=== PATIENT | male | born 1985 | race Caucasian/White ===

== ENCOUNTER 2022-08-21 17:22 | Emergency (ER) | payer MEDICAID, SELFPAY ==
[2022-08-21 17:41] VITALS: BP 173/97; PULSE 106; RESP 20; TEMP 37.2; O2SAT 93; BMI 53.2
[2022-08-21] MEDS: Lidocaine HCl 1 % MPF 5 ML VIAL 20 ML SUBCUT (19:06)
--- NOTE | 2022-08-21 19:16 | ED_ITS ---
HPI - Skin/Abscess/Foreign Bdy General Chief complaint: Skin/Abscess/Foreign Body Stated complaint: spinal cyst Time Seen by Provider: 08/21/22 18:44 Source: patient Mode of arrival: ambulatory Limitations: no limitations History of Present Illness MD complaint: abscess/boil Onset (ago): day(s) (Past few days worse today) Location: buttocks (Pilonidal) Severity: severe Severity scale (1-10): >10 Quality: aching and constant Pain Consistency: constant Relieving factors: none Exacerbating factors: none Context: none Associated symptoms: denies other symptoms Treatments prior to arrival: none Related Data Previous Rx's Medication Instructions Recorded acetaminophen 500 mg tablet 1,000 mg PO QID PRN fever or pain 08/21/22 (Tylenol Extra Strength) #14 tabs cephalexin 500 mg capsule 500 mg PO Q6H 10 days #40 caps 08/21/22 doxycycline monohydrate 100 mg 100 mg PO BID 10 days #20 caps 08/21/22 capsule ibuprofen 800 mg tablet 800 mg PO Q8H PRN pain #14 tabs 08/21/22 Allergies Allergy/AdvReac Type Severity Reaction Status Date / Time No Known Allergies Allergy Verified 08/21/22 17:45 Review of Systems Review of Systems: Constitutional : Denies history of same, Denies any other sites involved, Denies IV drug use, Denies history of MRSA, Denies swollen glands, Denies injury, Denies Fever, Denies Chills, + Sig Pain, Denies Systemic symptoms Cardiovascular : No Chest Pain, No SOB Respiratory : No Dyspnea Gastrointestinal : No abdominal pain Musculoskeletal : No Joint Swelling Skin : + abscess with surrounding erythema, No skin laceration, No Foreign bodies, No spreading rash, Denies bites, Denies discharge, Neuro : No Weakness, No Numbness/tingling Psych : No SI/HI/thoughts of self injury Yes all other systems are reviewed and are negative PMFSH Past Medical History Attestation statement: The following information was validated with the patient. Source: old records reviewed and nursing notes reviewed Social History Social History Advance Directives: No Advance Directives Information Provided: No Physical Exam Vital Signs: Vital Signs: Last Vital Signs Temp 98.9 F 08/21/22 17:41 Pulse 106 H 08/21/22 17:41 Resp 20 08/21/22 17:41 BP 173/97 H 08/21/22 17:41 Pulse Ox 93 08/21/22 17:41 O2 Del Method Room Air 08/21/22 17:41 BMI result Body Mass Index 53.2 vital signs have been reviewed as normal and appeared to be correct. Blood pressure 173/97 Heart rate 106. Respiration rate normal. Temperature normal. Oxygen saturation normal. Appearance: Alert. Oriented X3. No acute distress. Head: Normal external exam. Normocephalic. Atraumatic. Eyes: PERRLA. EOMI. Conjunctiva and sclera normal. Eyelids normal. ENT: Pharynx normal. Uvula midline. Moist mucous membranes. Neck: Normal inspection. Neck supple. FROM. CVS: Normal heart rate and rhythm. Respiratory: No respiratory distress. Painless inspiration. Skin: Skin warm and dry. Normal skin color. Normal skin turgor. Large pilonidal abscess approximately 5 x 5 cm with surrounding erythema. No active drainage or streaking noted at this time. Noted rashes/lesions/lacerations noted. Extremities: No lower extremity edema. Extremities exhibit normal range of motion. Extremities nontender. Neuro: Oriented X 3. No motor deficit. No sensory deficit. Reflexes normal. Normal steady gait. No focal neuro deficits noted. Vascular: + radial pulses. Normal cap refill. No cyanosis noted to upper extremity nails Course Course Course Narrative: IMP/Plan: abscess. No systemic toxicity, and pt looks well. + surrounding cellulitis. Not c/w nec fasc/ myositis/ DVT/ osteomyelitis. patient now status post I&D of abscess and patient tolerated procedure well. No complications. No labs or imaging indicated at this time. Patient reported that he would not like packing I did explain to him the benefits of packing although he reports the last time he had this panel abscess packed he became very sick therefore is refusing packing. Will DC home antibiotics and symptomatic treatment instructions return if any new or worsening symptoms to follow up with primary care provider, wound clinic and general surgeon for further evaluation treatment to return if any new or worsening symptoms. Patient understands agrees this plan. Medications Administered Discontinued Medications Generic Name Dose Route Start Last Admin Trade Name Freq PRN Reason Stop Dose Admin Lidocaine HCl 20 ml 08/21/22 18:39 08/21/22 19:06 Lidocaine Hcl 1 % Mpf 5 Ml Vial SUBCUT 08/21/22 18:40 20 ml ONCE ONE Administration Procedures Abscess I/D Site: other (Pilonidal) Local Anesthetic: lidocaine 1% Amount of anesthesia used (mL): 15 Technique: incised with blade Amount of fluid expressed (mL): 20 Sent for culture/gram staining?: No Irrigation: Yes Packing used?: none Complications: other (No complications patient tolerated procedure well) Discharge Plan Discharge Clinical Impression: Pilonidal abscess Patient Disposition: Home, Self-Care Instructions: Pilonidal Cyst (ED), Abscess (ED), Sitz Bath (DC) Prescriptions: New ibuprofen 800 mg tablet 800 mg PO Q8H PRN (Reason: pain) Qty: 14 0RF acetaminophen [Tylenol Extra Strength] 500 mg tablet 1,000 mg PO QID PRN (Reason: fever or pain) Qty: 14 0RF doxycycline monohydrate 100 mg capsule 100 mg PO BID 10 Days Qty: 20 0RF cephalexin 500 mg capsule 500 mg PO Q6H 10 Days Qty: 40 0RF [place] [facility] [place] [facility] [place]] (Call to make a follow-up appointment for pilonidal abscess) [facility] [Primary Care Provider] - 2 days Andrés Hall MD [Physician] - (Call to make a follow-up appointment for a pilonidal abscess)
[2022-08-21] MEDS: Doxycycline Monohydrate 100 MG CAPSULE PO (19:28)
[2022-08-21] MEDS: Ketorolac Tromethamine 60 MG/2 ML VIAL IM (19:28)
[2022-08-21] MEDS: cephALEXin 500 MG CAPSULE PO (19:28)
== END 2022-08-21 19:33 | disposition home or self-care (01) ==
PROVIDERS: Emergency Provider Internal Medicine
DX: L05.01 Pilonidal cyst with abscess (principal)
CPT/HCPCS: 10060; 96372; 99283; 99284; J1885

== ENCOUNTER 2022-09-19 22:37 | Emergency (ER) | payer MEDICAID, SELFPAY ==
[2022-09-19 22:38] VITALS: BP 172/135; PULSE 94; RESP 18; TEMP 36.1; O2SAT 95; BMI 43.0
== END 2022-09-19 23:18 | disposition left against medical advice (07) ==
PROVIDERS: Emergency Provider Emergency Medicine
DX: M54.50 Low back pain, unspecified (principal)
CPT/HCPCS: 99281

== ENCOUNTER 2022-09-20 17:13 | Emergency (ER) | payer MEDICAID, SELFPAY ==
--- NOTE | 2022-09-20 17:54 | ED_ITS ---
HPI - Skin/Abscess/Foreign Bdy General Chief complaint: Skin/Abscess/Foreign Body <LOURDES Mello Last Filed: 09/20/22 17:55> Stated complaint: Cyst on spine <LOURDES Mello Last Filed: 09/20/22 17:55> Time Seen by Provider: 09/20/22 18:04 <LOURDES Mello Last Filed: 09/20/22 17:55> Source: patient, RN notes reviewed and old records reviewed <LOURDES Rodriguez Last Filed: 09/20/22 18:50> Mode of arrival: ambulatory <LOURDES Rodriguez Last Filed: 09/20/22 18:50> History of Present Illness HPI narrative: 37-year-old male with past medical history pilonidal cyst presenting to the ED complaining of worsening pilonidal abscess x 4 days. Admits feels like area opened up today. Denies fever, chills, difficulty your inability to defecate/urinate, abdominal pain <LOURDES Rodriguez Last Filed: 09/20/22 18:50> MD complaint: abscess/boil <LOURDES Rodriguez Last Filed: 09/20/22 18:50> Related Data Home medications: Previous Rx's Medication Instructions Recorded acetaminophen 500 mg tablet 1,000 mg PO QID PRN fever or pain 08/21/22 (Tylenol Extra Strength) #14 tabs cephalexin 500 mg capsule 500 mg PO Q6H 10 days #40 caps 08/21/22 doxycycline monohydrate 100 mg 100 mg PO BID 10 days #20 caps 08/21/22 capsule ibuprofen 800 mg tablet 800 mg PO Q8H PRN pain #14 tabs 08/21/22 cephalexin 500 mg capsule 500 mg PO QID 7 days #28 caps 09/20/22 doxycycline hyclate 100 mg tablet 100 mg PO BID 7 days #14 tabs 09/20/22 <LOURDES Mello Last Filed: 09/20/22 17:55> Allergies/Adverse reactions: Allergies Allergy/AdvReac Type Severity Reaction Status Date / Time No Known Allergies Allergy Verified 09/20/22 17:57 <LOURDES Mello Last Filed: 09/20/22 17:55> Review of Systems Review of Systems: Constitutional: No Fever, No Chills ENT/Mouth: No Ear Pain, No Nasal Congestion, No sore throat, No Rhinorrhea, No Swallowing Difficulty Cardiovascular: No Chest Pain, No SOB Respiratory: No Cough, No Sputum Gastrointestinal: No Nausea, No Vomiting, No Diarrhea, No Constipation, No Abdominal pain Genitourinary: No Dysuria,No Hematuria, No Urinary Incontinence/retention, No Urgency, No Flank Pain Musculoskeletal: No joint pain, No Myalgias, No Joint Swelling Skin: + Skin Lesions, No rash Neuro: No Weakness, No Numbness, No Paresthesias <LOURDES Rodriguez - Last Filed: 09/20/22 18:50> Yes all other systems are reviewed and are negative <LOURDES Rodriguez - Last Filed: 09/20/22 18:50> Constitutional: Constitutional: Reports as per HPI <LOURDES Rodriguez - Last Filed: 09/20/22 18:50> [facility] Past Medical History Attestation statement: The following information was validated with the patient. <LOURDES Rodriguez - Last Filed: 09/20/22 18:50> Source: old records reviewed <LOURDES Rodriguez - Last Filed: 09/20/22 18:50> Physical Exam Vital Signs: Vital Signs: Last Vital Signs Temp 97.1 F 09/20/22 17:55 Pulse 99 09/20/22 17:55 Resp 22 H 09/20/22 17:55 BP 148/91 H 09/20/22 17:55 Pulse Ox 93 09/20/22 17:55 O2 Del Method Room Air 09/20/22 17:55 BMI result Body Mass Index 53.2 <LOURDES Mello - Last Filed: 09/20/22 17:55> Vital Signs: Last Vital Signs Temp 97.1 F 09/20/22 17:55 Pulse 99 09/20/22 17:55 Resp 22 H 09/20/22 17:55 BP 148/91 H 09/20/22 17:55 Pulse Ox 93 09/20/22 17:55 O2 Del Method Room Air 09/20/22 17:55 BMI result Body Mass Index 53.2 <LOURDES Rodriguez - Last Filed: 09/20/22 18:50> Const: General: cooperative, healthy appearing and no acute distress <LOURDES Rodriguez - Last Filed: 09/20/22 18:50> Orientation/consciousness: patient oriented x3 <LOURDES Rodriguez - Last Filed: 09/20/22 18:50> Limitations: no limitations <Khushi Steen PA - Last Filed: 09/20/22 18:50> HEENT: Head: Yes normal to inspection and Yes atraumatic <Khushi Steen PA - Last Filed: 09/20/22 18:50> Ears: hearing grossly normal bilaterally <Khushi Steen PA - Last Filed: 09/20/22 18:50> General nose exam: Normal external nose present <Khushi Steen PA - Last Filed: 09/20/22 18:50> Face and sinus: Yes normal facial exam <Khushi Steen PA - Last Filed: 09/20/22 18:50> Eyes: General: appearance normal, both eyes and all related structures <Khushi Steen PA - Last Filed: 09/20/22 18:50> EOM: EOMs intact bilaterally <Khushi Steen PA - Last Filed: 09/20/22 18:50> Neck: Neck: Yes normal visual inspection and Yes no meningeal signs <Khushi Steen PA - Last Filed: 09/20/22 18:50> Resp: Effort & Inspection: normal respiratory effort and no respiratory distress <LOURDES Rodriguez - Last Filed: 09/20/22 18:50> Cardio: Rate: regular rate <Khushi Steen PA - Last Filed: 09/20/22 18:50> : Other: + pilonidal abscess to right upper buttock with pointing/fluctuance and induration. Mild overlying erythema. No warmth. No crepitus. Tender to palpation. <LOURDES Rodriguez - Last Filed: 09/20/22 18:50> Skin: Rashes: no rashes <LOURDES Rodriguez - Last Filed: 09/20/22 18:50> Wounds: no wounds <Khushi Steen PA - Last Filed: 05/16/23 18:50> Neuro: General: patient oriented x3, tone normal and no meningeal signs <LOURDES Rodriguez Last Filed: 09/20/22 18:50> Gait exam (Neuro): Normal gait present <LOURDES Rodriguez Last Filed: 09/20/22 18:50> Extrem: General: Yes normal to inspection <LOURDES Rodriguez Last Filed: 09/20/22 18:50> Course Course Course Narrative: This is a rapid medical exam. deferred additional HPI, ROS, PE to primary provider. 37 yo male here with h/o pilonidal abscess here with reoccurrence x 4 day. No fevers, chills. Unable to visualize in triage. <LOURDES Mello Last Filed: 09/20/22 17:55> This is a rapid medical exam. deferred additional HPI, ROS, PE to primary provider. 37 yo male here with h/o pilonidal abscess here with reoccurrence x 4 day. No fevers, chills. Unable to visualize in triage. -patient did not tolerate procedure well, stopped early, refused packing. Large amount of purulent and bloody drainage expressed. Discussed at length importance of close general surgery follow-up and Sitz baths Results discussed with patient including worrisome signs and symptoms and strict return precautions, and when to return to the emergency department. They verbalized understanding and feel safe for discharge at this time. <LOURDES Rodriguez Last Filed: 09/20/22 18:50> Medical Decision Making Medical Decision Making MDM Narrative: 37-year-old male with past medical history pilonidal cyst presenting to the ED complaining of worsening pilonidal abscess x 4 days. On exam take it neck likely from discomfort, pilonidal cyst with pointing/fluctuance and induration noted as above. No evidence of Paula gangrene. Low suspicion for perirectal/perianal abscess Plan: I&D Please refer to course for remaining clinical decision making, interpretation of labs/imaging results, and discussions with consultants and/or family members. <LOURDES Rodriguez Last Filed: 09/20/22 18:50> Differential Diagnosis Differential Diagnoses: The differential diagnosis associated with the presentation includes <LOURDES Rodriguez Last Filed: 09/20/22 18:50> As above <LOURDES Rodriguez - Last Filed: 09/20/22 18:50> Admission/Observation Consideration of admission/observation: Escalation of care including admission/observation considered <LOURDES Rodriguez - Last Filed: 09/20/22 18:50> Lab Data MDM Lab Attestation statement: I reviewed the patient's lab results. <LOURDES Rodriguez - Last Filed: 09/20/22 18:50> Radiology Impression Discussion of test interpretation with radiology: I have reviewed the radiologist's reading. <LOURDES Rodriguez - Last Filed: 09/20/22 18:50> External Record Review External record reviewed: Inpatient record, Office record, Outpatient record, Prior outpatient labs, Prior outpatient radiology, Primary care record and Outside ED record <LOURDES Rodriguez Last Filed: 09/20/22 18:50> Tests considered The following testing was considered but not selected: As above <LOURDES Rodriguez - Last Filed: 09/20/22 18:50> Procedures Abscess I/D Site: other (Pilonidal) <LOURDES Rodriguez - Last Filed: 09/20/22 18:50> Side (if applicable): right <LOURDES Rodriguez - Last Filed: 09/20/22 18:50> Local Anesthetic: lidocaine 1% and with epi <LOURDES Rodriguez - Last Filed: 09/20/22 18:50> Amount of anesthesia used (mL): 5 <LOURDES Rodriguez - Last Filed: 09/20/22 18:50> Technique: incised with blade <LOURDES Rodriguez Last Filed: 09/20/22 18:50> Sent for culture/gram staining?: No <LOURDES Rodriguez - Last Filed: 09/20/22 18:50> Irrigation: No <LOURDES Rodriguez - Last Filed: 09/20/22 18:50> Packing used?: none (Patient could not tolerate) <LOURDES Rodriguez Last Filed: 09/20/22 18:50> Complications: pain <LOURDES Rodriguez - Last Filed: 09/20/22 18:50> Discharge Plan Discharge Clinical Impression: Pilonidal abscess <LOURDES Mello Last Filed: 09/20/22 17:55> Patient Disposition: Home, Self-Care <LOURDES Mello - Last Filed: 09/20/22 17:55> Instructions: Pilonidal Cyst (ED) <LOURDES Mello Last Filed: 09/20/22 17:55> Additional Instructions: Your abscess was drained today in the ED. You need to follow-up with General surgery. Keflex and doxycycline or antibiotics please take as prescribed Apply warm compresses/practice warm Sitz baths at home If areas worsening/spreading has continued drainage or you have fever, difficult y or inability to defecate or urinate return to the ED <LOURDES Mello - Last Filed: 09/20/22 17:55> Prescriptions: New cephalexin 500 mg capsule 500 mg PO QID 7 Days Qty: 28 0RF doxycycline hyclate 100 mg tablet 100 mg PO BID 7 Days Qty: 14 0RF No Action ibuprofen 800 mg tablet 800 mg PO Q8H PRN (Reason: pain) Qty: 14 0RF acetaminophen [Tylenol Extra Strength] 500 mg tablet 1,000 mg PO QID PRN (Reason: fever or pain) Qty: 14 0RF doxycycline monohydrate 100 mg capsule 100 mg PO BID 10 Days Qty: 20 0RF cephalexin 500 mg capsule 500 mg PO Q6H 10 Days Qty: 40 0RF <LOURDES Mello - Last Filed: 09/20/22 17:55> Referrals: [facility] [place] General Surgeons [Provider Group] Physician,Unknown J [Physician] - 2 days <LOURDES Mello Last Filed: 09/20/22 17:55>
[2022-09-20 17:55] VITALS: BP 148/91; PULSE 99; RESP 22; TEMP 36.2; O2SAT 93; BMI 53.2
[2022-09-20 18:50] VITALS: BP 146/103; PULSE 109; RESP 22; TEMP 37; O2SAT 93
== END 2022-09-20 19:02 | disposition home or self-care (01) ==
PROVIDERS: Emergency Provider Emergency Medicine
DX: L05.01 Pilonidal cyst with abscess (principal)
CPT/HCPCS: 10080; 99283; 99284

== ENCOUNTER → 2022-09-26 09:37 | Outpatient (BNVA) | payer MEDICAID, SELFPAY | PROVIDERS: PCP Nurse Practitioner Primary Care; Visit Provider Surgery | DX: L08.89 Other specified local infections of the skin and subcutaneous tissue (principal) | CPT/HCPCS: 99202 ==

== ENCOUNTER 2022-11-01 08:05 | Day surgery (SDC) | payer MEDICAID, SELFPAY ==
[2022-10-28 10:00] VITALS: BMI 53.6
--- NOTE | 2022-10-31 09:15 | HO.ANESPROP2 ---
HPI - Anesthesia Eval Consult details Narrative: 37yo M for Excision Pilonidal Cyst of marquise cleft, prone position Methadone dialy [facility] Active Problems Active Problems: All Active Problems (Updated 09/26/22 @ 10:07 by Rob Alonso MD) Pilonidal disease of cleft (Acute) Surgical History Surgical History History of back surgery Social History Social History Alcohol intake: current Patient Tobacco Use Status: Current everyday Tobacco user Meds Allergies Allergy/AdvReac Type Severity Reaction Status Date / Time No Known Allergies Allergy Verified 11/14/22 11:50 Home Medications Medication Instructions Recorded Confirmed Last Taken Type methadone 10 mg/mL oral concentrate 120 mg PO DAILY 10/31/22 10/31/22 11/01/22 History Exam Exam Date and Time: October 31, 2022 0915 Height,Weight and Vital Signs: Height 5 ft 7 in Weight 155.129 kg Assessment and Plan Assessment Anesthesia Assessment: Chart Reviewed
--- NOTE | 2022-10-31 10:18 | MHC.SHP ---
Pre-Procedural Eval Section A Date of Service: 10/31/22 The patient is an INPATIENT: No Changes since office visit: No Cold of Flu in the past 2 weeks, No New Medical Problems, No Changes in Medication and No Patient answered all questions The History & Physical has been completed within 30 days and I have reviewed it.: Yes Section B Chief Complaint: Other specified local infections of the skin Allergies: Allergies Allergy/AdvReac Type Severity Reaction Status Date / Time No Known Allergies Allergy Verified 09/20/22 17:57 Plan I have reviewed the history and physical and performed a pertinent physical examination on my patient. No changes have occurred unless specified. Time Spent With Patient Time: Total time managing care of this patient today ____ minutes.
[2022-11-01] VITALS (8 sets, daily range): BP systolic 114–158; BP diastolic 60–88; PULSE 74–84; RESP 18–20; TEMP 36.6; O2SAT 92–95
--- NOTE | 2022-11-01 08:24 | PC.NURSE ---
OR nurse updated that patient was not prepped to her groin in sss due to sensitive/fragile areas that could easily be nicked. okay to proceed. will prep in OR.
[2022-11-01] MEDS: Lactated Ringers 1,000 ML 100 ML IVCONT (08:29)
--- NOTE | 2022-11-01 08:45 | PC.NURSE ---
dr. lance assessed patient aware and lungs. aware patient was diagnosed with monisha months ago and does not have a cpap yet per pt and has f/u in 3 weeks. aware patient had marijuana and cigarettes this a.m. juan
--- NOTE | 2022-11-01 09:20 | HO.ANESPROP2 ---
[facility] Active Problems Active Problems: All Active Problems (Updated 09/26/22 @ 10:07 by Rob Alonso MD) Pilonidal disease of cleft ( hyper morbid obesity Surgical History Surgical History History of back surgery Social History Social History Alcohol intake: current Patient Tobacco Use Status: Current everyday Tobacco user Smoked in Last 30 Days: Yes Patient Interested in Nicotine Replacement: No Substance Use Frequency: Daily Are you DNR?: No Advance Directives: No Advance Directives Information Provided: Yes Nutrition Risks: No Nutritional Risk Meds Allergies Allergy/AdvReac Type Severity Reaction Status Date / Time No Known Allergies Allergy Verified 11/01/22 08:47 Active Medications: Current Medications Lactated Ringer's (Lr) 1,000 mls @ 100 mls/hr IVCONT .Q10H RADHA Last Admin: 11/01/22 08:29 Dose: 100 mls/hr Home Medications Medication Instructions Recorded Confirmed Last Taken Type methadone 10 mg/mL oral concentrate 120 mg PO DAILY 10/31/22 10/31/22 11/01/22 History Exam Exam Date and Time: November 01, 2022 0920 Height,Weight and Vital Signs: Height 5 ft 7 in Weight 155.129 kg Last Vital Signs Temp 97.9 F 11/01/22 08:31 Pulse 74 11/01/22 08:31 Resp 18 11/01/22 08:31 BP 158/79 H 11/01/22 08:31 Pulse Ox 94 11/01/22 08:31 O2 Del Method Room Air 11/01/22 08:31 Airway Mallampati Class: IV TM Dist: >3cm Neck ROM: Full Heart: RRR Lungs: CTA Assessment and Plan Final Anesthetic Review ASA Class: III Final Preanesthetic Review: Meds/Allgs Chart Reviewed, Consent Obtained/Reviewed and Anes Risks/Benef Reviewed Patient Risk: High Procedure Risk: Low Anesthetic Plan Anesthetic Plan: GA Disposition: Standard PACU
--- NOTE | 2022-11-01 10:28 | W.PM.OPN ---
Operative Note Operative Note Date of Service: 11/01/22 Narrative: Preoperative diagnosis: [] chronic symptoms of pilonidal cyst of marquise cleft Postop diagnosis: [] same Procedure [] wide local excision pilonidal disease/cyst of marquise cleft Surgeon: [] [employer] Coordinator: [] malini Ivan Type of Anesthesia: [] general Indication for surgery: [] final specimen measured approximately 10 x 6 cm of skin and soft tissue and associated tract of chronic pilonidal cyst of marquise cleft. Very large/corpulent patient Findings: [] patient brought to the operating room, And debated while on the stretcher in a supine position, after adequate level of general anesthesia was induced, patient was repositioned in the prone mela-knife position on the operating room table. cleft area was prepped and draped in usual sterile fashion. Using a longitudinal by elliptical incision encompassing all the diseased area, this carried down through skin, subcutaneous tissue, and undermined using Bovie conclude the pilonidal cyst area and an associated tract. Specimen sent to pathology. Wound was irrigated, secured hemostasis, and closed in the following manner; deep subcutaneous tissue to wound base to contralateral subcutaneous tissue was reapproximated using interrupted 0 Vicryl suture. Interrupted inverted deep dermal 2-0 Vicryl sutures followed by vertical mattress 2-0 skin Prolene sutures were then placed. Wound was infiltrated 0.5% Marcaine at completion. Sterile dressing was then applied. Sponge, needle, and instrument counts reported correct. Patient tolerated the procedure well and emerged anesthesia stable condition. EBL minimal
[2022-11-01] MEDS: Acetaminophen 1,000 MG/100 ML PIGGYBACK 400 MG IV (11:24)
--- NOTE | 2022-11-01 14:31 | HO.POSTANES ---
Post Anesthesia Evaluation Post Anesthesia Evaluation Date of Service: 11/01/22 Vital Signs: Vital Signs Temp Pulse Resp BP Pulse Ox O2 Del Method O2 Flow Rate 11/01/22 11:38 97.8 F 82 18 146/76 H 95 Room Air 11/01/22 11:23 81 18 133/88 95 Room Air 11/01/22 10:48 81 20 115/60 92 Simple Mask 8 11/01/22 11:08 77 18 114/61 95 Simple Mask 8 11/01/22 10:53 78 18 116/61 95 Simple Mask 8 11/01/22 10:43 84 18 115/67 93 Simple Mask 8 11/01/22 10:38 97.9 F 81 20 132/78 92 Simple Mask 8 11/01/22 08:31 97.9 F 74 18 158/79 H 94 Room Air Anesthesia: General Endotracheal-GETA Mental Status: Awake Pain Control: Satisfactory Nausea/Vomiting: None Hydration: Adequate Anesthesia-Related Issues: No Anes. Related Issues Comments: s
== END 2022-11-01 12:16 | disposition home or self-care (01) ==
PROVIDERS: Visit Provider Surgery
PROC: (CPT 11771; principal; 2022-11-01 09:30)
DX: L05.01 Pilonidal cyst with abscess (principal); E66.01 Morbid (severe) obesity due to excess calories; Z68.43 Body mass index [BMI] 50.0-59.9, adult; Z98.890 Other specified postprocedural states; Z79.891 Long term (current) use of opiate analgesic; F17.210 Nicotine dependence, cigarettes, uncomplicated
CPT/HCPCS: 11771; 88304; J0131; J0690; J1100; J1170; J2250; J2405; J2795; J3010

== ENCOUNTER → 2022-11-09 09:31 | Outpatient (BNVA) | payer MEDICAID, SELFPAY | PROVIDERS: Visit Provider Surgery ==

== ENCOUNTER → 2022-11-14 11:39 | Outpatient (BNVA) | payer MEDICAID, SELFPAY | PROVIDERS: PCP Nurse Practitioner Primary Care; Visit Provider Surgery ==

== ENCOUNTER 2022-11-14 11:41 | Outpatient (AMB) | payer MEDICAID, SELFPAY ==
[2022-11-14 11:48] VITALS: BP 179/87; PULSE 76
--- NOTE | 2022-11-14 11:48 | MHC.OFFVIS ---
Intake Vital Signs 11/14/22 11:48 Weight 342 lb BP 179/87 H Blood Pressure Location Rt radial Position Sitting Pulse 76 Intake Visit Reasons: Wound check Intake Note: Patient s/p pilonidal cyst exc. Patient woke up this morning on a pool of blood and pus. Patient finished rx pain meds. Nut Tightener Required: No Accompanied by: Self / Same As Patient Allergies No Known Allergies Allergy (Verified 11/14/22 11:50) HPI HPI Comments History of Present Illness Details Patient presents because of some drainage from the the bottom of his incision. He is otherwise doing well. He has time to diabetes having normal bowel habits. He has increased his activity level. [facility], [facility] Surgical History History of back surgery Social History Alcohol intake: current Patient Tobacco Use Status: Current everyday Tobacco user Physical Exam Vital Signs: Last Vital Signs Pulse 76 11/14/22 11:48 BP 179/87 H 11/14/22 11:48 Back/Spine/Pelvis Other: Majority wound is clean dry intact with good 1st intention healing. The most inferior aspect of the pilonidal cyst of the cleft incision has partially with some serous drainage but no evidence of any infection or purulence. Assessment & Plan Assessment & Plan (1) Pilonidal disease of marquise cleft: Code(s): L08.89 - Other specified local infections of the skin and subcutaneous tissue Plan Patient was reassured that there is no infection. Most inferior aspect incision is under the most stress from simply walking bending and has partially . The I reassured him that this will heal by secondary intention. The present time, he is to keep a dressing over the area to catch any drainage or wounds. He will see me as directed for suture removal or p.r.n.. Coding Level of Care Code Global (57190) Diagnoses Pilonidal disease of marquise cleft L08.89
== END 2022-11-14 11:51 | disposition home or self-care (01) ==
PROVIDERS: PCP Nurse Practitioner Primary Care; Visit Provider Surgery
DX: L08.89 Other specified local infections of the skin and subcutaneous tissue (principal)
CPT/HCPCS: 99024

== ENCOUNTER 2022-11-29 13:55 | Outpatient (AMB) | payer MEDICAID, SELFPAY ==
[2022-11-29 14:08] VITALS: BP 135/78; PULSE 81
--- NOTE | 2022-11-29 14:08 | A.OFFVIS_ITS ---
Intake Vital Signs 11/29/22 14:08 Weight 343 lb BP 135/78 Blood Pressure Location Rt brachial Position Sitting Pulse 81 Intake Visit Reasons: Pilonidal cyst wound check Intake Note: Patient here s/p pilonidal cyst excision. Patient reports pain meds were gone the first couple of days. Only remedied with tylenol and motrin and methadone. C/o bleeding and oozing. Patient stated he regrets doing surgery during summer. Dye Machine Tender Required: No Accompanied by: Self / Same As Patient Allergies No Known Allergies Allergy (Verified 11/29/22 14:10) HPI HPI Comments History of Present Illness Details Patient finally presented for follow-up for suture removal of his pilonidal cyst. He had missed several appointments. Aside from serous discharge, he has no other real wound issues or complaints. He is slowly increasing his activity level. [facility] Surgical History History of back surgery Social History Alcohol intake: current Patient Tobacco Use Status: Current everyday Tobacco user Physical Exam Vital Signs: Last Vital Signs Pulse 81 11/29/22 14:08 BP 135/78 11/29/22 14:08 Back/Spine/Pelvis Other: Pilonidal wound mom proximal 2/3 are healing by 1st intention. The most inferior aspect of incision with healthy granulating tissue. No evidence of infection. Sutures are uneventfully removed. Dressing applied. Assessment & Plan Assessment & Plan (1) Pilonidal disease of marquise cleft: Code(s): L08.89 - Other specified local infections of the skin and subcutaneous tissue Plan Patient has been given local instructions, and will follow-up p.r.n. Coding Level of Care Code Global (93162) Diagnoses Pilonidal disease of marquise cleft L08.89
== END 2022-11-29 14:19 | disposition home or self-care (01) ==
PROVIDERS: PCP Nurse Practitioner Primary Care; Visit Provider Surgery
DX: L08.89 Other specified local infections of the skin and subcutaneous tissue (principal)
CPT/HCPCS: 99024

== ENCOUNTER → 2022-11-29 13:55 | Outpatient (BNVA) | payer MEDICAID, SELFPAY | PROVIDERS: PCP Nurse Practitioner Primary Care; Visit Provider Surgery ==

== ENCOUNTER 2024-05-22 08:43 | Emergency (ER) | payer MEDICAID, SELFPAY ==
--- NOTE | ~2024-05-22 | CT_ITS ---
EXAMINATION: CT ABDOMEN AND PELVIS WITHOUT CONTRAST CLINICAL INFORMATION: Right flank pain. Abdominal pain. COMPARISON: None available. TECHNIQUE: Multidetector volumetric imaging was performed from the superior aspect of the liver through the pubic symphysis. Sagittal and coronal reformatted images were obtained on the technologist's workstation. This CT examination was performed using dose optimization techniques as appropriate, variously including the following: *Automated exposure control *Adjustment of mA and/or kV according to patient size (this includes techniques or standardized protocols for targeted exams where dose is matched to indication/reason for exam; i.e. extremities or head) *Use of iterative reconstruction technique DLP: 1125 mGy centimeter. FINDINGS: Inadequate evaluation of the intra-abdominal organs and vascular structures due to lack of IV contrast. LUNG BASES: No acute airspace disease. 1 mm subpleural nodule, left lung base, nonspecific. LIVER, GALLBLADDER, AND BILIARY TREE: Liver measures 19 cm. Fluid-filled gallbladder without pericholecystic fluid collection or gallbladder wall thickening. Questionable 1 mm intraluminal isodensity. No intrahepatic or extrahepatic biliary ductal dilatation. PANCREAS: No peripancreatic fluid collection. No main pancreatic ductal dilatation. SPLEEN: 11 cm. ADRENAL GLANDS: 1.2 cm low-density nodule measures - Hounsfield units, left adrenal gland. No nodular lesions, right adrenal gland. KIDNEYS AND URETERS: Right kidney: Mild hydroureteronephrosis. There is a 1 mm calculus at the right vesicoureteral junction/intraluminal right posterior bladder. Edema pattern, right periureteral. Left kidney: No hydronephrosis. No nephrolithiasis. BLADDER: 1 mm calcification in the right posterior lumen/vesicoureteral junction. GASTROINTESTINAL TRACT: Abundant stool, large intestine. Terminal ileum is normal. I do not see the appendix. No intestinal obstruction pattern. No pneumatosis intestinalis. No ascites. No pneumoperitoneum. ABDOMINAL WALL: Small fat-containing umbilical hernia. There is a 6.5 cm lobulated fat density above the right inguinal canal and lateral to the right epigastric vessel extending through the abdominal wall anteriorly just lateral to the right abdominal rectus muscle. LYMPH NODES: Nonspecific prominent lymph nodes, mesenteric and retroperitoneum. VASCULAR: No aneurysm, abdominal aorta. Calcified plaques in the splenic arteries. PELVIC VISCERA: Not evaluated. OSSEOUS STRUCTURES: No acute fracture or listhesis in the axial skeleton. Spondylosis L4-5 and L5-S1. Bony pelvis is intact. Sclerosis and the sacroiliac joints. Spina bifida occulta S1, congenital. CT/CT abdomen pelvis wo IV con IMPRESSION: 1 mm obstructing calculus at the right vesicoureteral junction/intraluminal bladder resulting in mild hydroureteronephrosis. Hepatomegaly. Fat-containing umbilical hernia. 6.5 cm fat density lesion/mass right lower abdominal wall may represent a lipoma and less likely right femoral hernia. Artifact versus cholelithiasis. Lipid rich adenoma, left adrenal gland. Fleischner guidelines were followed. Electronically signed by: Roderick Llamas MD 05/22/2024 10:38 AM RICARDO
[2024-05-22 08:45] VITALS: BP 202/101; PULSE 92; RESP 18; TEMP 36.6; O2SAT 97; BMI 40.7
[2024-05-22 09:22] LABS: MANUAL DIFF FLAG NO
[2024-05-22 09:27] LABS: Basophils Percent Auto 0.4 % (0-2); Eosinophils Absolute Auto 0.3 X10*3/uL (0.0-0.4); Eosinophils Percent Auto 3.1 % (0-4); Hematocrit 42.2 % (42.0-52.0); Hemoglobin 14.3 g/dl (14.0-18.0); Imm Gran Abs Auto 0.04 X10*3/uL (0.00-0.03); Imm Gran Pct Auto 0.4 % (0.0-0.4); Lymphocytes Absolute Auto 2.7 X10*3/uL (1.2-4.9); Lymphocytes Percent Auto 30.6 % (20-40); Mean Corpuscular HGB Conc 33.9 g/dl (31.0-36.0); Mean Corpuscular Hemoglobin 26.9 pg (27.0-33.0); Mean Corpuscular Volume 79.5 fL (80.0-98.0); Mean Platelet Volume 8.9 fL (9.4-12.4); Monocytes Absolute Auto 0.7 X10*3/uL (0.1-1.2); Monocytes Percent Auto 7.7 % (2-11); Neutrophils Absolute Auto 5.1 x10*3/uL (2.0-8.3); Neutrophils Percent Auto 57.8 % (45-73); Platelet Count 230 X10*3/uL (160-400); Red Blood Count 5.31 X10*6/uL (4.60-5.80); Red Cell Distribution Width 14.5 % (11.0-16.0); White Blood Count 8.9 X10*3/uL (4.8-10.8)
[2024-05-22 09:29] LABS: Appearance Urine Clear; Glucose Urine UA Negative (Negative); Leukocyte Esterase Urine Trace (Negative); Nitrite Urine Negative (Negative); Specific Gravity - Urine 1.015 (1.005-1.025); UMIC TRIGGER UACC YES; Urine Blood Large (3+) (Negative); Urine Ketones Negative (Negative); Urine Protein 30 (1+) mg/dL (Neg-Trace)
[2024-05-22 09:30] LABS: Bacteria Urine None Seen (None Seen); Color Urine Yellow; Hyaline Casts Urine 0-2 /LPF (0-2); UACC Culture Trigger YES
[2024-05-22 09:41] LABS: Alanine Aminotransferase 31 U/L (0-40); Alkaline Phosphatase 57 U/L (39-117); Anion Gap 9 (12-20); Aspartate Amino Transferase 24 U/L (5-37); Bilirubin Total 0.3 mg/dL (0.0-1.0); Blood Urea Nitrogen 14 mg/dL (9-16); Calcium 8.8 mg/dL (8.4-10.2); Carbon Dioxide 28 mmol/L (22-29); Chloride 106 mmol/L (96-108); Creatinine Clr Calc Pharmacy 108.6; Estimated Glomerular Filt Rate > 60; Glucose Random 140 mg/dL (60-115); Potassium 4.4 mmol/L (3.3-5.1); Sodium 139 mmol/L (135-145); Total Protein 7.7 g/dL (6.5-8.0)
--- NOTE | 2024-05-22 09:51 | ED.ABDPAIN ---
HPI - Abdominal Pain General Chief Complaint: Abdominal Pain Stated Complaint: R Back Side Pain Time Seen by Provider: 05/22/24 09:49 Source: patient Mode of arrival: ambulatory Limitations: no limitations History of Present Illness HPI narrative: 39-year-old male history of pilonidal cyst presents emergency department complaining of right flank pain radiating towards his abdomen patient did have labs and urine sent while in triage which shows caro blood. Patient is already sounds consistent kidney stone he Related Data Home Medications ?Medication ?Instructions ?Recorded ?Confirmed methadone 10 mg/mL oral concentrate 120 mg PO DAILY 10/31/22 10/31/22 Previous Rx's ?Medication ?Instructions ?Recorded acetaminophen 500 mg tablet 1,000 mg (2 x 500 mg) PO QID PRN 08/21/22 (Tylenol Extra Strength) fever or pain #14 tabs ibuprofen 800 mg tablet 800 mg PO Q8H PRN pain #14 tabs 08/21/22 ondansetron 4 mg disintegrating 4 mg PO Q6H #14 tabs 05/22/24 tablet Allergies Allergy/AdvReac Type Severity Reaction Status Date / Time No Known Allergies Allergy Verified 05/22/24 08:46 Review of Systems Review of Systems Review of systems: General: Patient denies any fever chills recent illness or falls Musculoskeletal: Denies back pain or body aches or other injuries HEENT: denies headache, runny nose, ear pain Respiratory: denies shortness of breath, cough Cardiovascular: no chest pain or palpitations : denies dysuria, frequency Abdomen: no nausea vomiting denies abdominal pain Extremities: no swelling, no pain Skin: no diaphoresis Yes all other systems are reviewed and are negative [facility] Past Medical History Surgical History History of back surgery Social History Social History Alcohol intake: current Patient Tobacco Use Status: Current everyday Tobacco user Advance Directives: No Advance Directives Information Provided: Yes Do you have a plan to hurt others: No Plan Physical Exam ED Vital Signs: Vital Signs - 24 hr 05/22/24 08:45 Temperature 97.9 F Pulse Rate 92 Respiratory Rate 18 Blood Pressure 202/101 H Pulse Oximetry 97 Oxygen Delivery Method Room Air BMI result Body Mass Index 40.7 General: Well-appearing well-nourished in no signs of distress HEENT: Normocephalic atraumatic Neck: No signs of JVD, no masses no tenderness or lymphadenopathy Cardiovascular: Regular rate and rhythm Respiratory: Clear to auscultation bilaterally Abdomen: Soft nontender no masses no CVA tenderness Extremities: Normal pedal pulses no signs of edema Skin: Dry warm no rashes Back: No tenderness full ROM Course Course Course Narrative: patient came in and has not blood in his urine urine does not look infected he does have a kidney stone I do feel comfortable discharging the patient home as pain was controlled with Toradol send him home with Zofran and ibuprofen. Medical Decision Making Medical Decision Making [facility] Narrative: I will send the patient for a CT scan patient labs so far consistent with kidney stone with blood in the urine I will give the patient Toradol and reassess. Differential Diagnosis Differential Diagnoses: The differential diagnosis associated with the presentation includes appendicitis cholecystitis kidney stone dehydration electrolyte abnormality UTI pyelo Lab Data 05/22/24 09:18 05/22/24 09:18 Labs: Lab Results 05/22/24 Range/Units 09:18 WBC 8.9 (4.8-10.8) X10*3/uL RBC 5.31 (4.60-5.80) X10*6/uL Hgb 14.3 (14.0-18.0) g/dl Hct 42.2 (42.0-52.0) % MCV 79.5 L (80.0-98.0) fL MCH 26.9 L (27.0-33.0) pg MCHC 33.9 (31.0-36.0) g/dl RDW 14.5 (11.0-16.0) % Plt Count 230 (160-400) X10*3/uL MPV 8.9 L (9.4-12.4) fL Immature Gran % (Auto) 0.4 (0.0-0.4) % Neut % (Auto) 57.8 (45-73) % Lymph % (Auto) 30.6 (20-40) % Logan % (Auto) 7.7 (2-11) % Eos % (Auto) 3.1 (0-4) % Baso % (Auto) 0.4 (0-2) % Lymph # (Auto) 2.7 (1.2-4.9) X10*3/uL Logan # (Auto) 0.7 (0.1-1.2) X10*3/uL Eos # (Auto) 0.3 (0.0-0.4) X10*3/uL Baso # (Auto) 0.0 (0.0-0.2) X10*3/uL Abs Immat Gran (auto) 0.04 H (0.00-0.03) X10*3/uL Absolute Neuts (auto) 5.1 (2.0-8.3) x10*3/uL Absolute Nucleated RBC 0.000 (0.0-0.012) X10*3/uL Nucleated RBC % (auto) 0.0 (0.0-0.2) /100WBC Sodium 139 (135-145) mmol/L Potassium 4.4 (3.3-5.1) mmol/L Chloride 106 (96-108) mmol/L Carbon Dioxide 28 (22-29) mmol/L Anion Gap 9 L (12-20) BUN 14 (9-16) mg/dL Creatinine 1.11 (0.5-1.4) mg/dL Estim Creat Clear Calc 108.6 Estimated GFR > 60 Random Glucose 140 H (60-115) mg/dL Calcium 8.8 (8.4-10.2) mg/dL Total Bilirubin 0.3 (0.0-1.0) mg/dL AST 24 (5-37) U/L ALT 31 (0-40) U/L Alkaline Phosphatase 57 (39-117) U/L Total Protein 7.7 (6.5-8.0) g/dL Albumin 4.0 (3.5-5.0) g/dL Urine Color Yellow Urine Appearance Clear Urine pH 6.0 (5.0-9.0) Ur Specific [place] 1.015 (1.005-1.025) Urine Protein 30 (1+) H (Neg-Trace) mg/dL Urine Glucose (UA) Negative (Negative) mg/dL Urine Ketones Negative (Negative) mg/dL Urine Blood Large (3+) H (Negative) Urine Nitrite Negative (Negative) Ur Leukocyte Esterase Trace H (Negative) Urine RBC 11-20 H (0-2) /HPF Urine WBC 11-20 H (0-5) /HPF Ur Squamous Epith Cells 3-5 (0-2) /HPF Urine Bacteria None Seen (None Seen) Hyaline Casts 0-2 (0-2) /LPF Medications Administered Discontinued Medications Generic Name Dose Route Start Last Admin Trade Name Freq PRN Reason Stop Dose Admin Ketorolac Tromethamine 15 mg 05/22/24 09:51 05/22/24 10:06 Ketorolac Tromethamine 15 Mg/Ml Vial IVPUSH 05/22/24 09:52 15 mg ONCE ONE Administration Discharge Plan Discharge Clinical Impression: Kidney stone on right side Patient Disposition: Home, Self-Care Instructions: Kidney Stones (ED) Additional Instructions: You were seen today in the emergency department for a kidney stone. You were given medications for pain I will send him home with some Zofran you can use ibuprofen for pain at home. Please drink plenty of fluids and follow up with Urology. Prescriptions: New ondansetron 4 mg tablet,disintegrating 4 mg PO Q6H Qty: 14 0RF No Action ibuprofen 800 mg tablet 800 mg PO Q8H PRN (Reason: pain) Qty: 14 0RF acetaminophen [Tylenol Extra Strength] 500 mg tablet 1,000 mg PO QID PRN (Reason: fever or pain) Qty: 14 0RF methadone 10 mg/mL Concentrate 120 mg PO DAILY Referrals: Vladimir Bourne MD [Physician] - ( Please call to to follow up for your kidney stones. Please drink currently fluids.) Stand Alone Forms: Work/School Release Print Language: Armenian
[2024-05-22] MEDS: Ketorolac Tromethamine 15 MG/ML VIAL IVPUSH (10:06)
[2024-05-22 10:50] VITALS: BP 114/59; PULSE 79; RESP 14; TEMP 36.9; O2SAT 97
[2024-05-22 10:56] VITALS: BP 114/59; PULSE 79; RESP 14; TEMP 36.9; O2SAT 97
== END 2024-05-22 10:56 | disposition home or self-care (01) ==
PROVIDERS: Emergency Provider Student in an Organized Health Care Education/Training Program; PCP Nurse Practitioner Primary Care
DX: N20.0 Calculus of kidney (principal); M54.50 Low back pain, unspecified; F17.210 Nicotine dependence, cigarettes, uncomplicated; Z79.899 Other long term (current) drug therapy
CPT/HCPCS: 36415; 74176; 80053; 81001; 85025; 87086; 96374; 99283; 99284; J1885

== ENCOUNTER → 2024-05-22 09:51 | Outpatient (BNV) | payer MEDICAID, SELFPAY | PROVIDERS: Emergency Provider Student in an Organized Health Care Education/Training Program; PCP Nurse Practitioner Primary Care; Visit Provider Radiology Diagnostic Radiology | DX: R10.9 Unspecified abdominal pain (principal) | CPT/HCPCS: 74176 ==

== ENCOUNTER 2025-02-15 11:02 | Emergency (ER) | payer MEDICAID, SELFPAY ==
[2025-02-15 11:06] VITALS: BP 194/109; PULSE 89; RESP 17; TEMP 36.6; O2SAT 98; BMI 50.8
--- OUTSIDE RECORDS SUMMARY | 2025-02-15 11:46 | XMS_ITS | Clinical Summary ---
Author Organization [employer] Address [address] [facility] [address] [place] [address] Care Team Providers Care Chimney Builder Helper Name Role Phone Nova Ham SAROJ Primary Care Provider [phone] Allergies No known active allergies Medications varenicline (Chantix) 0.5 MG tabletIndications :Cigarette nicotine dependence without complication Take 0.5 mg PO once daily on Days 1 through 3, then 0.5 mg PO twice daily on Days 4 through 7, then start 1mg twice daily prescription; take with full glass of water 11 tablet 5 Active varenicline (Chantix) 1 MG tabletIndications :Cigarette nicotine dependence without complication Take 1 tablet (1 mg) by mouth 2 times daily. Take with full glass of water. Start after initial 7d rx. 60 tablet 2 5 Active nicotine (Nicoderm CQ) 14 MG/24HR patchIndications: Cigarette nicotine dependence without complication Place 1 patch on the skin 1 (one) time each day at the same time. 28 patch 5 Active nicotine (Nicoderm CQ) 21 MG/24HR patchIndications: Cigarette nicotine dependence without complication Place 1 patch on the skin 1 (one) time each day at the same time. 42 patch 5 Active nicotine (Nicoderm, Step 3) 7 MG/24HR patchIndications: Cigarette nicotine dependence without complication Place 1 patch on the skin 1 (one) time each day at the same time. 14 patch 1 5 Active acetaminophen (Tylenol Extra Strength) 500 MG tabletIndications :Kidney stone Take 2 tablets (1,000 mg) by mouth every 8 (eight) hours if needed for mild pain or moderate pain. 60 tablet 5 Active Blood Pressure kitIndications:El evated blood pressure reading without diagnosis of hypertension 1 each 2 times daily. 1 kit 5 05/31/19 26 Active amLODIPine-olmesa rtan (Yoni) 5-20 MG tabletIndications :Essential hypertension TAKE 1 TABLET BY MOUTH EVERY DAY 90 tablet 3 5 Active Tirzepatide-Weigh t Management 7.5 MG/0.5ML solution auto-injectorIndi cations:Class 3 severe obesity with serious comorbidity and body mass index (BMI) of 50.0 to 59.9 in adult ([facility]) Inject 0.5 mL (7.5 mg) under the skin 1 (one) time per week. 2 mL 1 5 Active Active Problems Problem Noted Date Diagnosed Date Essential hypertension 07/05/2024 Cigarette nicotine dependence without complicati on 07/05/2024 Class 3 severe obesity with serious comorbidity and body mass index (BMI) of 50.0 to 59.9 in adult 07/05/2024 Encounters Date Type Department Care Team Description 12/13/2024 Telephone [facility] [address] [place] [id number] Nova Ham ANP Med Refill 12/12/2024 2:00 PM EDT Clinical Support [address] [address] Jazmine Mccoy RN Class 3 severe obesity with serious comorbidity and body mass index (BMI) of 50.0 to 59.9 in adult; Essential hypertension 12/12/2024 Travel 12/11/[address] [address] Nova Ham ANP Appointment Request 12/11/[address] [address] Nova Ham ANP Class 3 severe obesity with serious comorbidity and body mass index (BMI) of 50.0 to 59.9 in adult from Last 3 Months Social History Tobacco Use Types Packs/Day Years Used Date Smoking Tobacco: Every Day Cigarettes Depression Answer Date Recorded Patient Health Questionnaire-9 Score 9 05/24/2024 Patient Health Questionnaire-9 Score 9 05/24/2024 Last PHQ-9: Questionnaire Data Not on file 0 05/24/2024 Housing Stability Answer Date Recorded What is your housing situation today? I have joby peterson 05/24/[address] you li ve. Do you have problems with any of the following? I am not sure 05/24/2024 Food Insecurity Answer Date Recorded Within the past 12 months, y ou worried that your food would run out before you got money to buy more: Sometimes True 2024 Within the past 12 months,th e food you bought just didn't last and you didn't have enough money to get more: Sometimes True 05/24/2024 Transportation Answer Date Recorded In the past 12 months, has l ack of transportation kept you from medical appts, meetings, work or from getting things needed for daily living? No 05/24/2024 Depression Answer Date Recorded Patient Health Questionnaire-2 Score 2 05/24/2024 Internet Access Answer Date Recorded Internet Access Q1 Yes 05/24/2024 Internet Access Q2 Not on file 05/24/2024 Sex and Gender Information Value Date Recorded Sex Assigned at Male 03/07/2022 10:18 AM EDT Legal Sex Male 10:18 AM EDT Gender Identity Choose not to disclose 10:18 AM EDT Sexual Orientation Don't know 03/07/2022 10 :18 AM EDT Last Filed Vital Signs Vital Sign Reading Time Taken Comments Blood Pressure 148/87 12/12/2024 2:06 PM EDT Pulse 90 12/12/2024 2:06 PM EDT Temperature 36.9 C (98.5 F) 05/24/2024 2:05 PM EST Respiratory Rate 20 12/12/2024 2:06 PM EDT Oxygen Saturation 97% 12/12/2024 2:06 PM EDT Inhaled Oxygen Concentration - - Weight 146 kg (322 lb) 12/12/2024 2:06 PM EDT Height 167.6 cm (5' 6 ) 05/24/2024 2:05 PM EST Body Mass Index 51.97 05/24/2024 2:05 PM EST Plan of Treatment Health Maintenance Due Date Last Done Comments HIV Screening 1984 Lipid Panel 1984 SDOH Screening 1984 Disability Screening 1984 Family Planning (PISQ) 01/26/1999 HPV Vaccines (1 - 3-dose series) 01/26/1999 Hepatitis C Screening 01/26/2002 DTaP/Tdap/Td Vaccines (1 - Tdap) 01/26/2003 Hepatitis B Vaccines (1 of 3 - 19+ 3-dose series) 01/26/2003 Pneumococcal Vaccine: Pediatrics (0 to 5 Years) and At-Risk Patients (6 to 49) Years (1 of 2 - PCV) 01/26/2003 Depression Monitoring 11/21/2024 05/24/2024 , 05/24/2024 COVID-19 Vaccine (1 - 2023-2 5 season) 2025 Influenza Vaccine (#1) 2025 Alcohol/Substance Use Screening 05/24/2025 05/24/2024 Tobacco Screening 10/29/2025 10/29/2024 Zoster Vaccines (1 of 2) 01/26/2034 RSV Patients and Patients Aged 60 years or older (1 - 1-dose 75+ series) 01/26/2059 HIB Vaccines Aged Out No longer eligi ble based on patient's age to complete this topic Hepatitis A Vaccines Aged Out No long er eligible based on patient's age to complete this topic IPV Vaccines Aged Out No longer eligi ble based on patient's age to complete this topic Meningococcal B Vaccine Aged Out No l onger eligible based on patient's age to complete this topic Meningococcal Vaccine Aged Out No kelli jules eligible based on patient's age to complete this topic RSV under 20 months Aged Out No longe r eligible based on patient's age to complete this topic Rotavirus Vaccines Aged Out No longer eligible based on patient's age to complete this topic Insurance [facility] C3 Care Teams Chimney Builder Helper Relationship Specialty Start Date End Date Nova Ham ANP [address] [place] [address] PCP - General Family Medicine 04/04/22
--- OUTSIDE RECORDS SUMMARY | 2025-02-15 11:46 | XMS_ITS | Clinical Summary ---
Author Organization [employer] [facility] Address [address] [place] [address] Care Team Providers Care Heavy Coil Winder Name Role Phone Rainer Martinez MD Primary Care Provider [phone] Allergies No known active allergies Medications medical marijuana [employer]CH[employer] PENCILS ASSEM[employer]ER med Active Active Problems Problem Noted Date Diagnosed Date Lumbar disc disease with radiculopathy Overview (05/14/2024): disc compression 2009 Opioid dependence (CMS/HCC V24, CMS/HCC V28) 11/2024 Back pain 01/06/2010 Overview (05/14/2024): MRI showing some disk protrusion, question nerve involvement. Referred to orthopedics. Foot pain 01/06/2010 Hip pain 01/06/2010 Knee pain 01/06/2010 Obese 01/06/2010 Plantar wart 01/06/2010 Surgical History Surgery Date Site/Laterality Comments APPENDECTOMY PROCEDURE: HISTORICAL APPENDECTOMY OTHER SURGICAL HISTORY PROCEDURE: DECOMPRESS DISC RF LUMBAR Medical History Medical History Date Comments Lumbar disc disease with radiculopathy DX:Lumbar disc disease with radiculopathy; COMMENT: disc compression 2009 Opioid dependence (CMS/HCC V 24, CMS/HCC V28) DX:Opioid dependence ([facility]) Family History Medical History Relation Name Comments Other: HIV-positive Father also Senior Core Java Developer hn's disease Other: generally in good health Mother Relation Name Status Comments Father Mother Social History Tobacco Use Types Packs/Day Years Used Date Smoking Tobacco: Every Day Cigarettes Alcohol Use Standard Drinks/Week Comments No 0 (1 standard drink = 0.6 oz pur e alcohol) Sex and Gender Information Value Date Recorded Sex Assigned at Not on file Legal Sex Male 9:37 AM EST Gender Identity Not on file Sexual Orientation Not on file Obstetrics History Plan of Treatment Health Maintenance Due Date Last Done Comments DTaP,Tdap,and Td Vaccines (1 - Tdap) 01/26/2003 Hepatitis A Vaccines (1 of 2 - Risk 2-dose series) 01/26/2003 Hepatitis B Vaccines (1 of 3 - 19+ 3-dose series) 01/26/2003 Pneumococcal Vaccine: Pediat rics (0 to 5 Years) and At-Risk Patients (6 to 49 Years) (1 of 2 - PCV) 01/26/2003 HPV Vaccines (1 - 3-dose SCD M series) 01/26/2011 Depression Screening 05/08/2024 Cholesterol Screening (Lipid Panel) 05/15/2024 09/19/2013 HIV Screening 05/15/2024 Hepatitis C Screening 05/15/2024 Social Influencers of Health Screening 05/15/2024 COVID-19 Vaccine (1 - 2023-2 5 season) 2025 Influenza Vaccine (#1) 2025 RSV Immunization Adult Patie nts (1 - 1-dose 75+ series) 01/26/2059 HIB Vaccines Aged Out No longer eligi ble based on patient's age to complete this topic IPV Vaccines Aged Out No longer eligi ble based on patient's age to complete this topic MMR Vaccines Aged Out No longer eligi ble based on patient's age to complete this topic Meningococcal ACWY Vaccine Aged Out N o longer eligible based on patient's age to complete this topic Meningococcal B Vaccine Aged Out No l onger eligible based on patient's age to complete this topic RSV Immunization Patients Un eddie 20 months Aged Out No longer eligible b ased on patient's age to complete this topic Varicella Vaccines Aged Out No longer eligible based on patient's age to complete this topic Procedures Procedure Name Priority Date/Time Associated Diagnosis Comments LIPID PANEL Routine 09/19/2013 from Last 3 Months or Most Recently Relevant to Health Maintenance Results * (ABNORMAL) Lipid panel (09/19/2013) LDL/HDL Ratio 5(A) 0 - 4 Triglycerides 197(A) 0 - 150 mg/dL Cholesterol 187 0 - 200 mg/dL HDL 37(A) >=40 mg/dL LDL Cholesterol 111(A) 0 - 100 mg/dL Blood Venous blood specimen / Unknown us Historical Provider LAB BLOOD ORDERABLES Maty l Result from Last 3 Months or Most Recently Relevant to Health Maintenance Care Teams Heavy Coil Winder Relationship Specialty Start Date End Date Rainer Martinez MD PCP - General Internal Medicine 08/23/13
--- OUTSIDE RECORDS SUMMARY | 2025-02-15 11:46 | XMS_ITS | Encounter Summary ---
Author Organization [employer] Address [address] [facility] [address] [place] [address] Care Team Providers Care Wind Field Service Manager Name Role Phone Nova Ham Primary Care Provider [phone] Reason for Visit * Reason Comments Med Refill Encounter Details Date Type Department Care Team (Late st Contact Info) Description 08/27/2024 Refill [facility] [address] [place], [place] [id number] Nova Ham ANP [address] [place] [address] Class 3 severe obesity with serious comorbidity and body mass index (BMI) of 50.0 to 59.9 in adult, unspecified obesity type Social History Tobacco Use Types Packs/Day Years [...] Don't know 03/07/2022 10 :18 AM EDT documented as of this encounter Plan of Treatment Not on file documented as of this encounter Visit Diagnoses Diagnosis Class 3 severe obesity with serious comorbidity and body mass index (BMI) of 50.0 to 59.9 in adult, unspecified obesity type (HCC) documented in this encounter Additional Health Concerns Assessment Noted Time PHQ-9 Depression Total Score: 9 05/24/19 25 2:42 PM EST documented as of this encounter Care Teams Wind Field Service Manager Relationship Specialty Start Date End Date Nova Ham ANP [address] [place] [id number] PCP - General Family Medicine 04/04/22 documented as of this encounter
--- NOTE | 2025-02-15 11:57 | ED_ITS ---
HPI - General Adult General Chief complaint: Eye Problems Stated complaint: metal in r eye at work Time Seen by Provider: 02/15/25 11:57 Source: patient Mode of arrival: ambulatory Limitations: no limitations History of Present Illness ED Provider: Taryn Sneed PA-C HPI narrative: Patient is a 40 year old assigned male at with no reported medical history presenting to the emergency department today with right eye pain and foreign body in right eye. 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 Patient denies any other complaints at this time. Onset (ago): day(s) (1) Location: eyes and right Related Data Home Medications ?Medication ?Instructions ?Recorded ?Confirmed methadone 10 mg/mL oral concentrate 120 mg PO DAILY 10/31/22 Previous Rx's ?Medication ?Instructions ?Recorded acetaminophen 500 mg tablet 1,000 mg (2 x 500 mg) PO Q ID PRN 08/21/22 (Tylenol Extra Strength) fever or pain #14 tabs ibuprofen 800 mg tablet 800 mg PO Q8H PRN pain #14 t abs 08/21/22 ondansetron 4 mg disintegrating 4 mg PO Q6H #14 tabs 0 05/22/24 tablet prednisone 20 mg tablet 20 mg PO DAILY 5 days #5 tab s 05/23/24 tamsulosin 0.4 mg capsule 0.4 mg PO BEDTIME 7 days #7 caps 05/23/24 erythromycin 5 mg/gram (0.5 %) eye 0.5 inch ophthalmic (eye) Q4H #3.5 02/15/25 ointment grams Allergies Allergy/AdvReac Type Severity Reaction Status Date / Time No Known Allergies Allergy Verified 02/15/25 11:09 Review of Systems Constitutional: Constitutional: Reports as per HPI Eyes: Eyes: Reports as per HPI ENT: Reports as per HPI Cardiovascular: Cardiovascular: Reports as per HPI Respiratory: Respiratory: Reports as per HPI Gastrointestinal: Gastrointestinal: Reports as per HPI Genitourinary: Genitourinary: Reports as per HPI Musculoskeletal: Musculoskeletal: Reports as per HPI Integumentary/Breasts: Skin/Breast: Reports as per HPI Neurologic: Reports as per HPI Psychiatric: Psychiatric: Reports as per HPI Endocrine: Endocrine: Reports as per HPI Hematologic/Lymphatic: Hematologic/Lymphatic: Reports as per HPI Allergic/Immunologic: Allergic/Immunologic: Reports as per HPI [facility] Past Medical History Attestation statement: The following information was validated with the patient. Source: old records reviewed and nursing notes reviewed Medical History History of kidney stones Surgical History History of back surgery Social History Social History Alcohol intake: current Patient Tobacco Use Status: Current everyday Tobacco user Smoked in Last 30 Days: Yes Use of substances other than those prescribed or required for medical reasons: No Advance Directives: No Advance Directives Information Provided: No Do you have a plan to hurt others: No Plan Physical Exam ED Vital Signs: Vital Signs - 24 hr 02/15/25 11:06 02/15/25 12:50 Temperature 97.8 F 97.8 F Pulse Rate 89 89 Respiratory Rate 17 17 Blood Pressure 194/109 H 194/109 H Pulse Oximetry 98 98 Oxygen Delivery Method Room Air Room Air BMI result Body Mass Index 50.8 Const General: cooperative, no acute distress, alert and awake Nutritional Appearance: well nourished Orientation/consciousness: patient oriented x3 HENMT Head: Yes normal to inspection and Yes atraumatic Ears: hearing grossly normal bilaterally and external ears normal General nose exam: Normal external nose present, no nasal discharge noted and no epistaxis Face and sinus: Yes normal facial exam, No abrasion and No laceration Mouth: Normal oral and palatal mucosa present, no drooling and no muffled voice Eyes Periorbital: periorbital findings normal Eyelids: Yes eyelids normal Corneas: corneas abnormal on the right foreign body metallic Pupils: Equal, round and reactive pupils present EOM: EOMs intact bilaterally Neck Neck: Yes normal visual inspection and Yes full ROM Resp Effort & Inspection: normal respiratory effort and able to speak in complete sentences Neuro General: patient oriented x3, moves all extremities and CN's II-XI intact bilaterally Cranial nerves: Yes Equal, round and reactive pupils present Cognition (Neuro): normal cognition Extrem General: Yes normal to inspection, Yes full ROM and Yes capillary refill normal Psych Appearance: grossly normal Mental Status: mental status grossly normal Affect: normal affect Attitude: cooperative Thought process: Normal thought process present Thought content: Normal thought content present Insight: Good insight present (Psych) Medications Administered Discontinued Medications Generic Name Dose Route Start Last Admin Trade Name Darin PRN Reason Stop Dose Admin Tetracaine HCl 1 drop 02/15/25 11:57 02/15/25 12:01 Tetracaine Hcl/Pf 0.5% Oph Teodora 4 Ml Drops EYE-RIGHT 02/15/25 11:58 1 drop ONCE ONE Administration Procedures FB Removal Eye Time Out performed: Yes Location: eye (R) Topical anesthetic used: tetracaine Foreign body: metal Evidence of corneal penetration: No Technique: needle Procedure performed under: direct visualization with magnification Post-procedure medication: ophthalmic antibiotic and topical anesthetic Patient tolerated procedure: well and no complications Medical Decision Making Medical Decision Making MDM Narrative: Patient is a 40 year old assigned male at with no reported medical history presenting to the emergency department today with right eye pain and foreign body in right eye. Patient's physical exam was as noted in the physical exam portion of this note with a metallic foreign body in the right eye at the 5 o'clock position. I explained my physical exam findings to the patient. I answered all questions asked by the patient. Patient's right eye was numbed with tetracaine and the foreign body was removed with an 18g needle without incident. I stressed the importance of the patient taking his medication as directed (either prescribed or as the over the counter packaging recommends). I stressed the importance of the patient following up with his primary care provider and his resume specialist. I stressed the importance of the patient returning to the emergency department immediately if his symptoms were to worsen or if he were to develop any dizziness, shortness of breath, difficulty breathing, chest pain, blurry vision, loss of vision, nausea, vomiting, abdominal pain, fever, chills, back pain, or any other complaints. Patient verbalized agreement and understanding with this treatment plan and discharge. Differential Diagnosis Differential Diagnoses: The differential diagnosis associated with the presentation includes Retained foreign body Foreign body in right eye Right corneal abrasion Admission/Observation Consideration of admission/observation: Escalation of care including admission/observation considered Patient would have been admitted to the hospital had his clinical presentation warranted hospital admission. Prescription Management I considered prescription management with: Antibiotic (patient prescribed an antibiotic for his right corneal abrasion) Discharge Plan Discharge Clinical Impression: Foreign body in eye Qualifiers: Encounter type: initial encounter Laterality: right Qualified Code(s): T15.91XA - Foreign body on external eye, part unspecified, right eye, initial encounter Corneal abrasion Qualifiers: Encounter type: initial encounter Laterality: right Qualified Code(s): S05.01XA - Injury of conjunctiva and corneal abrasion without foreign body, right eye, initial encounter Patient Disposition: Home, Self-Care Instructions: Corneal Abrasion (DC), Eye Foreign Body (ED) Additional Instructions: You had a metal shaving in your cornea (eye) that I removed. You have an abrasion (scratch) in your cornea (eye) that requires antibiotic ointment. You should follow up with an resume specialist. IF you are prescribed home medications and/or you are taking over the counter medications at home - it is very important you continue to do so as prescribed / directed unless told otherwise. Follow up with your primary care provider. Return to the emergency department immediately if your symptoms worsen or if you develop any numbness, tingling, dizziness, shortness of breath, difficulty breathing, chest pain, blurry vision, loss of vision, nausea, vomiting, abdominal pain, fever, chills, back pain, or any other complaints. Please see the information below about our Patient Portal. If you are not yet enrolled in the [facility] Patient Portal, you will receive an enrollment email invitation following your visit to any [facility] setting. You may also self-enroll in the Patient Portal by visiting our website: [email or web address] The following information is required to access the Patient Portal: - Your [facility] Medical Record Number - Your personal home email address (must match what is in your electronic medical record, Registration staff can assist with this) - Name - Date of Capabilities of the Patient Portal: - Message some providers - View upcoming appointments - Access your health summary, medical history, and visit history - View current conditions and allergies - View procedure and lab results - View your medications, including guidelines, side effects, and precautions - Complete pre-appointment questionnaires requested by your provider - Ready summary reports of your office visits and procedures To access the Patient Portal Mobile Damon, follow these directions: - Search [employer] in the Damon Store or Google Play Store - Download the Damon - Search for [facility] - Enter your login/password Prescriptions: New erythromycin 5 mg/gram (0.5 %) ointment 0.5 inch ophthalmic (eye) Q4H Qty: 3.5 0RF No Action tamsulosin 0.4 mg capsule 0.4 mg PO BEDTIME 7 Days Qty: 7 0RF prednisone 20 mg tablet 20 mg PO DAILY 5 Days Qty: 5 0RF ibuprofen 800 mg tablet 800 mg PO Q8H PRN (Reason: pain) Qty: 14 0RF acetaminophen [Tylenol Extra Strength] 500 mg tablet 1,000 mg PO QID PRN (Reason: fever or pain) Qty: 14 0RF ondansetron 4 mg tablet,disintegrating 4 mg PO Q6H Qty: 14 0RF methadone 10 mg/mL Concentrate 120 mg PO DAILY Referrals: Dallas Aranda [Physician, Ophthalmology] Referral Note: Call to establish and follow up with an resume specialist. Nova Ham NP [Primary Care Provider, Internal Medicine] Stand Alone Forms: Work/School Release Interventions: ED Discharge Assessment Last Done: 02/15/25 12:50 Discharge Date/Time: 02/15/25 12:54 Print Language: Portuguese
[2025-02-15] MEDS: Tetracaine HCl/PF 0.5% Oph Sol 4 ML DROPS 1 DROP EYE-RIGHT (12:01)
[2025-02-15 12:50] VITALS: BP 194/109; PULSE 89; RESP 17; TEMP 36.6; O2SAT 98
== END 2025-02-15 12:54 | disposition home or self-care (01) ==
PROVIDERS: Emergency Provider Emergency Medicine; PCP Nurse Practitioner Primary Care
DX: T15.01XA Foreign body in cornea, right eye, initial encounter (principal); H57.11 Ocular pain, right eye; W44.E0XA Non-magnetic metal object unspecified, entering into or through a natural orifice, initial encounter; Y93.9 Activity, unspecified; Y92.9 Unspecified place or not applicable; Y99.0 Civilian activity done for income or pay; Z79.899 Other long term (current) drug therapy; F17.210 Nicotine dependence, cigarettes, uncomplicated
CPT/HCPCS: 65220; 99283; 99284

== ENCOUNTER → 2025-05-07 21:54 | Outpatient (BNV) | payer MEDICAID, SELFPAY | PROVIDERS: Emergency Provider Emergency Medicine; Visit Provider Internal Medicine | DX: R00.0 Tachycardia, unspecified (principal) | CPT/HCPCS: 93010 ==